=== PATIENT | male | born 1955 ===

== ENCOUNTER → 2017-06-22 | Outpatient (CLI) | payer BC ==
[2017-06-22 14:00] LABS: ALT/SGPT 35 U/L (12-78); AST/SGOT 15 U/L (15-37); BLOOD UREA NITROGEN 15 mg/dl (7-18); BUN/CREATININE RATIO 12.6 (10-20); CALCIUM 8.7 mg/dl (8.5-10.1); CARBON DIOXIDE 28 mmol/L (21-32); CHLORIDE 102 mmol/L (98-107); CHOLESTEROL 160 mg/dl (0-200); CREATININE 1.16 mg/dl (0.60-1.40); GLUCOSE 93 mg/dl (70-99); POTASSIUM 3.6 mmol/L (3.5-5.1); SODIUM 139 mmol/L (136-145); TRIGLYCERIDES 174 mg/dl (0-150); VERY LOW DENSITY LIPOPROT CALC 35 mg/dl
[2017-06-22 14:04] LABS: CHOLESTEROL/HDL RATIO 5.3; HDL CHOLESTEROL 30 mg/dl; LDL CHOLESTEROL CALCULATED 95 mg/dl
== END | disposition home or self-care (01) ==
LOC: C.LABMFLN 09:23
PROVIDERS: ATTEND Family Medicine
DX: I10 Essential (primary) hypertension (principal); E78.00 Pure hypercholesterolemia, unspecified; Z12.5 Encounter for screening for malignant neoplasm of prostate

== ENCOUNTER → 2018-03-11 | Outpatient (CLI) | payer BC ==
--- NOTE | 2018-03-11 20:39 | EXERCISE STRESS ECHO ---
*NOTICE TO RECEIVING [employer] This information is strictly Confidential and protected under [place] law. [place] law prohibits you from making any further disclosure of this information unless further disclosure is expressly permitted by the written consent of the person to whom it pertains or is authorized by law. A general authorization for the release of medical or other information is not sufficient for this purpose. Hospital accepts no responsibility if the information is made available to any other person, INCLUDING THE PATIENT. Interpretation Summary * Name: MARGOTH MAR Study Date: 03/11/2018 11:25 AM BP: 118/74 mmHg * Patient Location: [facility] HR: 81 * : 1955 (M/d/yyyy) Gender: Male Height: 66 in * Age: 62 yrs Ethnicity: [place] Weight: 208 lb * Ordering Physician: Alyssa Quiles * Referring Physician: Suhas Quiles * Performed By: Micaela Noel RDCS * * Reason For Study: Chest pain, * BSA: 2.0 m2 * -- Conclusions -- * Stress Echo: * 1. Negative stress echo for ischemia at 100 % MPHR. * 2. Negative exercise ECG for ischemia at 100 % MPHR. * 3. Appropriate blood pressure response to exercise. * 4. No arrhythmia. * 5. Study terminated due to fatigue. No chest pain reported. * 6. Good exercise tolerance. * Echo: * 1. Normal left ventricular size and systolic function. EF 60-65%. No regional wall motion abnormalities. Mild concentric left ventricular hypertrophy. No significant diastolic dysfunction suggested. * 2. The right ventricle is mildly dilated. Normal right ventricular systolic function. * 3. No significant valvular abnormalities visualized. Procedure Details * ECHOEX, CPT #[id number] * ECHO DOPPLER, CPT #[id number] * ECHO COLOR FLOW, CPT #[id number] Left Ventricle * Normal left ventricular size and systolic function. EF 60-65%. No regional wall motion abnormalities. Mild concentric left ventricular hypertrophy. No significant diastolic dysfunction suggested. * Stress echo imaging was performed while I was personally standing by the bedside. Images were reviewed in real-time. Unfortunately, due to technical difficulties, stress echo imaging did not save and therefore are not available for review. While monitoring the stress echo in real time, the LV became smaller and more vigorous following exercise. LV systolic function became hyperdynamic. All visualized wall segments augmented, without new wall motion abnormalities. Right Ventricle * The right ventricle is mildly dilated. * The right ventricular systolic function is normal as assessed by tricuspid annular plane systolic excursion (TAPSE) (normal >1.5 cm). Atria * The left atrial size is normal. * Right atrial size is normal. * There is no evidence of atrial septal defect, but resolution does not allow assessment for a patent foramen ovale. Mitral Valve * The mitral valve is grossly normal. * There is no mitral valve stenosis. * There is trace mitral regurgitation. Tricuspid Valve * The tricuspid valve is not well visualized. * There is no tricuspid stenosis. * Significant tricuspid regurgitation is absent. Aortic Valve * The aortic valve is trileaflet. * No hemodynamically significant valvular aortic stenosis. * No aortic regurgitation is present. Pulmonic Valve * The pulmonary valve is inadequately visualized, but the Doppler data is adequate for interpretation. * Mild pulmonic valvular regurgitation. Great Vessels * The aortic root is normal size. * Aortic arch of normal dimension. * Ascending aorta of normal dimension * IVC normal in size. Pericardium * There is no pericardial effusion. Stress Parameters * Sinus rhythm at 81 bpm. * Stress ECG: No ST changes. No arrhythmias. * No arrhythmia were noted with stress. * The stress portion of this study was personally supervised by the undersigned interpreting physician. * Rest heart rate was '81' BPM. * Rest blood pressure was '118/74' * Maximum heart rate achieved was 160 bpm. * Maximum heart rate was 100 % of maximum age-predicted heart rate. * Maximum blood pressure was '156/57' * Total exercise time was '8:31' * Maximum exercise MET level achieved was '10.10' METS * Maximum treadmill speed was '3.40' miles per hour. * Maximum treadmill elevation was '14.00'% grade. * Exercise was terminated due to 'Fatigue' * Normal blood pressure response to exercise. MMode 2D Measurements and Calculations IVSd 1.3 cm LVIDd 4.1 cm LVIDs 2.4 cm LVPWd 1.3 cm IVS/LVPW 0.96 FS 42.1 % EDV(Teich) 74.9 ml ESV(Teich) 19.8 ml EF(Teich) 73.6 % EDV(cubed) 69.7 ml ESV(cubed) 13.5 ml EF(cubed) 80.6 % LV mass(C)d 196.6 grams LV mass(C)dI 96.7 grams/m\S\2 SV(Teich) 55.1 ml SI(Teich) 27.1 ml/m\S\2 SV(cubed) 56.2 ml SI(cubed) 27.6 ml/m\S\2 Ao root diam 3.4 cm Ao root area 9.3 cm\S\2 ACS 2.5 cm asc Aorta Diam 3.1 cm LVOT diam 2.1 cm LVOT area 3.5 cm\S\2 LVAd ap4 30.9 cm\S\2 LVLd ap4 8.4 cm EDV(MOD-sp4) 91.0 ml EDV(sp4-el) 96.3 ml LVAs ap4 16.9 cm\S\2 LVLs ap4 6.6 cm ESV(MOD-sp4) 35.6 ml ESV(sp4-el) 36.4 ml EF(MOD-sp4) 60.9 % EF(sp4-el) 62.1 % LVAd ap2 33.4 cm\S\2 LVLd ap2 8.3 cm EDV(MOD-sp2) 109.6 ml EDV(sp2-el) 114.0 ml LVAs ap2 19.1 cm\S\2 LVLs ap2 6.9 cm ESV(MOD-sp2) 43.6 ml ESV(sp2-el) 45.1 ml EF(MOD-sp2) 60.2 % EF(sp2-el) 60.5 % LVLd %diff -0.86 % EDV(MOD-bp) 100.6 ml LVLs %diff 3.7 % ESV(MOD-bp) 39.9 ml EF(MOD-bp) 60.3 % SV(MOD-sp4) 55.4 ml SI(MOD-sp4) 27.2 ml/m\S\2 SV(MOD-sp2) 66.0 ml SI(MOD-sp2) 32.4 ml/m\S\2 SV(MOD-bp) 60.7 ml SI(MOD-bp) 29.8 ml/m\S\2 SV(sp4-el) 59.8 ml SI(sp4-el) 29.4 ml/m\S\2 SV(sp2-el) 68.9 ml SI(sp2-el) 33.9 ml/m\S\2 Doppler Measurements and Calculations MV E max kumar 73.2 cm/sec MV A max kumar 69.0 cm/sec MV E/A 1.1 MV dec time 0.25 sec Ao V2 max 121.2 cm/sec Ao max PG 5.9 mmHg Ao max PG (full) 2.1 mmHg MARIELA(V,A) 2.8 cm\S\2 MARIELA(V,D) 2.8 cm\S\2 LV V1 max PG 3.8 mmHg LV V1 max 97.1 cm/sec PA V2 max 107.0 cm/sec PA max PG 4.6 mmHg PA acc slope 469.7 cm/sec\S\2 PA acc time 0.14 sec PI max kumar 191.5 cm/sec PI max PG 14.7 mmHg PI dec slope 245.5 cm/sec\S\2 PI P1/2t 228.5 msec PA pr(Accel) 14.4 mmHg
== END | disposition home or self-care (01) ==
LOC: C.CPL 11:11
PROVIDERS: ATTEND Family Medicine
DX: R06.09 Other forms of dyspnea (principal); R07.89 Other chest pain